=== PATIENT | male | born 1970 | race Caucasian/White ===

== ENCOUNTER 2018-12-16 06:35 | Inpatient (IN) | payer BC ==
[~2018-12-16 06:35] MED LIST: CEFAZOLIN 2 GM/50 ML (PMX) 50 ML IVPB; TRANEXAMIC ACID 1GM/100ML(PMX) 100 ML IVPB
[2018-12-16] MEDS: GABAPENTIN 300 MG CAP PO ×2 (07:00→20:25)
[2018-12-16] MEDS: DEXAMETHASONE 1 MG TAB PO (07:01)
[2018-12-16] MEDS: LACTATED RINGER'S 1,000 ML IV (07:02)
[2018-12-16] MEDS ORDERED: BUPIVACAINE 0.5%/EPI (SDV) 30 ML INJ (07:12)
[2018-12-16] MEDS ORDERED: TRANEXAMIC ACID 1GM/100ML(PMX) 200 ML (07:12)
[2018-12-16] MEDS ORDERED: THROMBIN 5000 UNIT (RECOTHROM) VIAL (07:12)
[2018-12-16] MEDS ORDERED: CA CHLORIDE 10% 10 ML SYRINGE (07:12)
[2018-12-16] MEDS ORDERED: MIDAZOLAM 1 MG/ML 2 ML INJ (07:44)
[2018-12-16] MEDS ORDERED: CEFAZOLIN 1 GM INJ (07:44)
[2018-12-16] MEDS ORDERED: PROPOFOL 20 ML (07:44)
[2018-12-16] MEDS ORDERED: ROCURONIUM 50 MG INJ (07:44)
[2018-12-16] MEDS ORDERED: ROPIVACAINE 0.5 % 30 ML VIAL (07:44)
[2018-12-16] MEDS ORDERED: FENTAnyl 50 MCG/ML VIAL (07:44)
[2018-12-16] MEDS ORDERED: FENTAnyl 50 MCG/ML VIAL IV ×3 (08:00)
[2018-12-16] MEDS ORDERED: EPHEDrine 25 MG/5 ML SYG IV (08:00)
[2018-12-16] MEDS ORDERED: LABETALOL HCL 20MG INJ IV (08:00)
[2018-12-16] MEDS ORDERED: OXYCODONE/ACETAMINOPHEN (5/325) TAB PO ×2 (08:00)
[2018-12-16] MEDS ORDERED: HYDROmorphONE 1 MG/5 ML IV SYRINGE IV ×3 (08:00)
[2018-12-16] MEDS ORDERED: ONDANSETRON 4 MG INJ IV ×2 (08:00→10:30)
[2018-12-16] MEDS ORDERED: METOCLOPRAMIDE 10 MG INJ IV (08:00)
[2018-12-16] MEDS ORDERED: KETOROLAC 30 MG INJ (09:04)
[2018-12-16] MEDS ORDERED: METOCLOPRAMIDE 10 MG INJ (09:04)
[2018-12-16] MEDS ORDERED: DEXAMETHASONE 4 MG/ML 5 ML INJ (09:04)
[2018-12-16] MEDS ORDERED: ONDANSETRON 4 MG INJ (09:04)
[2018-12-16] MEDS: BUPIVACAINE 0.5% (SDV) 30 ML, morphine SULFATE (PF) 8 MG, EPINEPHrine 0.3 MG, KETOROLAC... IRR (09:16)
[2018-12-16] MEDS: POLYMYXIN/BACITRACIN 1L IRRIG (09:16)
[2018-12-16] MEDS ORDERED: SUGAMMADEX SODIUM 200 MG/2 ML VIAL IV (10:06)
[2018-12-16] MEDS ORDERED: DIPHENHYDRAMINE 50 MG INJ IV (10:30)
[2018-12-16] MEDS ORDERED: NACL 0.9% 3 ML SYG IV (10:30)
[2018-12-16] MEDS ORDERED: LOPERAMIDE 2 MG CAP PO (10:30)
[2018-12-16] MEDS ORDERED: oxyCODONE 5 MG TAB PO ×3 (10:30)
[2018-12-16] MEDS ORDERED: MAGNESIUM HYDROXIDE 30ML CUP PO (10:30)
[2018-12-16] MEDS ORDERED: ZOLPIDEM 5 MG TAB PO (10:30)
[2018-12-16] MEDS: TRANEXAMIC ACID 1GM/100ML(PMX) 100 ML IVPB (11:15)
[2018-12-16] MEDS: CEFAZOLIN 1 GM/50 ML (PMX) 50 ML IVPB ×2 (11:16→17:58)
[2018-12-16] MEDS: ACETAMINOPHEN 500 MG TAB PO ×2 (12:54→17:57)
[2018-12-16] MEDS: DEXAMETHASONE 2 MG TAB PO ×2 (12:54→17:57)
[2018-12-16] MEDS: HYDROmorphONE 1 MG/ML SYG IV ×3 (13:02→21:02)
[2018-12-16] MEDS: MIRTAZAPINE 15 MG TAB PO (20:25)
[2018-12-16] MEDS: KETOROLAC 15 MG INJ IV (20:25)
[2018-12-16] MEDS: SENNA/DOCUSATE NA (8.6MG/50MG) TAB PO (20:25)
[2018-12-17] MEDS: DEXAMETHASONE 2 MG TAB PO ×2 (00:23→06:18)
[2018-12-17] MEDS: HYDROmorphONE 1 MG/ML SYG IV ×4 (00:47→12:29)
[2018-12-17] MEDS: CEFAZOLIN 1 GM/50 ML (PMX) 50 ML IVPB (02:41)
[2018-12-17] MEDS: ACETAMINOPHEN 500 MG TAB PO ×3 (04:50→12:00)
[2018-12-17] MEDS: PANTOPRAZOLE (EC) 40 MG TAB PO (06:18)
[2018-12-17] MEDS: SENNA/DOCUSATE NA (8.6MG/50MG) TAB PO (08:54)
== END 2018-12-17 12:45 | disposition home or self-care (01) | DRG 483 ==
LOC: REC 06:35 → MS1 11:45
PROC: 0RRK00Z Replacement of Left Shoulder Joint with Reverse Ball and Socket Synthetic Substitute, Open Approach (ICD-10-PCS; principal; 2018-12-16 08:30)
PROC: 0RPK0JZ Removal of Synthetic Substitute from Left Shoulder Joint, Open Approach (ICD-10-PCS; 2018-12-16 08:30)
DX: T84.028A Dislocation of other internal joint prosthesis, initial encounter (principal); Z96.612 Presence of left artificial shoulder joint
CPT/HCPCS: 73030; 86999; 87070; 87075; 87102; 87116; 88300; 88305; 88331; 97161